=== PATIENT | male | born 1980 ===

== ENCOUNTER 2018-07-04 20:53 | Emergency (ER) | payer SELFPAY ==
[2018-07-04 21:35] VITALS: BP 152/102; PULSE 88; RESP 16; TEMP 99.6; O2SAT 98
--- NOTE | 2018-07-04 22:12 | ED PDOC ---
Upper Extremity Pain/Injury Time Seen by Provider: 07/04/18 21:54 Chief Complaint (Nursing): Finger,Hand,&Wrist Chief Complaint (Provider): Finger,Hand,&Wrist History Per: Patient History/Exam Limitations: no limitations Onset/Duration Of Symptoms: Hrs (x 1) Current Symptoms Are (Timing): Still Present Quality: "Pain" Additional Complaint(s): 37 year old male presents to the Ed with right hand and wrist pain as well as left knee pain, onset about 1 hour ago. 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 He denies head injury, LOC, chest pain, neck pain, abdominal pain and other symptoms. PMD: none provided Past Medical History Reviewed: Historical Data, Nursing Documentation, Vital Signs Vital Signs: Last Vital Signs Temp 99.6 F 07/04/18 21:32 Pulse 88 07/04/18 21:32 Resp 16 07/04/18 21:32 BP 152/102 H 07/04/18 21:32 Pulse Ox 98 07/04/18 21:32 - Medical History PMH: No Chronic Diseases - Surgical History Surgical History: No Surg Hx - Family History Family History: States: Unknown Family Hx - Home Medications Home Medications: Ambulatory Orders Medication Instructions Recorded Ibuprofen [Motrin Tab] 600 mg PO TID #15 tab 07/04/18 - Allergies Allergies/Adverse Reactions: Allergies Allergy/AdvReac Type Severity Reaction Status Date / Time No Known Allergies Allergy Verified 07/04/18 21:31 Review of Systems ROS Statement: Except As Marked, All Systems Reviewed And Found Negative Musculoskeletal: Positive for: Hand Pain (right hand and wrist pain), Other (left knee pain) Physical Exam - Reviewed Nursing Documentation Reviewed: Yes Vital Signs Reviewed: Yes - Physical Exam Appears: Positive for: No Acute Distress Head Exam: Positive for: ATRAUMATIC, NORMAL INSPECTION, NORMOCEPHALIC Skin: Positive for: Normal Color, Warm, Dry Eye Exam: Positive for: EOMI, Normal appearance, PERRL Neck: Positive for: Normal Cardiovascular/Chest: Positive for: Regular Rate, Rhythm Respiratory: Positive for: Normal Breath Sounds Back: Positive for: Normal Inspection Extremity: Positive for: Tenderness (right upper extremity: mild tenderness to dorsal hand and wrist without swelling), Swelling (Left knee: mild tenderness and swelling to anterior left knee with decreased ROM secondary to pain. no distal neurovascular dficit). Negative for: Normal ROM ((+) decreased ROM at left knee secondary to pain) Neurologic/Psych: Positive for: Alert, Oriented. Negative for: Motor/Sensory Deficits - ECG O2 Sat by Pulse Oximetry: 98 (RA) Pulse Ox Interpretation: Normal Medical Decision Making Medical Decision Makin:57 Initial Plan: --Right hand x-ray --Right wrist x-ray --Left knee x-ray --Motrin 600 mg PO Wrist/Hand x-ray: no fx; as read by me Knee x-ray: no fx, no dislocation, ? slightly high riding patella; as read by me Knee immobilized with robert wrap by lila eaton, knee immobilzer applied, crutches given with instruction. repeat bp 155/90. Scribe Attestation: Documented by Claudia Sun, acting as a scribe for Serene Eaton PA-C Provider Scribe Attestation: All medical record entries made by the Scribe were at my direction and personally dictated by me. I have reviewed the chart and agree that the record accurately reflects my personal performance of the history, physical exam, medical decision making, and the department course for this patient. I have also personally directed, reviewed, and agree with the discharge instructions and disposition. Disposition - Clinical Impression Clinical Impression: Knee injury, Wrist injury - Patient ED Disposition Is Patient to be Admitted: No Counseled Patient/Family Regarding: Studies Performed, Diagnosis, Need For Followup, Rx Given - Disposition Referrals: Sharona Cote MD [Staff Provider] - Disposition: Routine/Home Disposition Time: 23:18 Condition: STABLE Prescriptions: Ibuprofen [Motrin Tab] 600 mg PO TID #15 tab Instructions: Internal Derangement of the Knee (DC), Common Wrist Injuries Forms: [employer] (Croatian) Print Language: KAZAKH
--- NOTE | 2018-07-05 12:47 | RAD ---
Date of service: 07/04/2018 PROCEDURE: Left Knee Radiographs. HISTORY: Pain. COMPARISON: None. FINDINGS: BONES: Normal. No fracture. JOINTS: Normal. No osteoarthritis. JOINT EFFUSION: Small suprapatellar joint effusion. OTHER FINDINGS: None. IMPRESSION: Evidence of acute displaced fracture nor dislocation. Small suprapatellar joint effusion..
--- NOTE | 2018-07-05 13:10 | RAD ---
PROCEDURE: Right Hand Radiographs. HISTORY: trauma COMPARISON: None. FINDINGS: BONES: Normal. No fracture. JOINTS: Normal. No osteoarthritic changes. SOFT TISSUES: Normal. OTHER FINDINGS: None. IMPRESSION: Normal right hand radiographs.
--- NOTE | 2018-07-05 13:10 | RAD ---
Date of service: 07/04/2018 PROCEDURE: Right Wrist Radiographs. HISTORY: trauma COMPARISON: None. FINDINGS: BONES: Normal. No fracture. JOINTS: Normal. No dislocation. SOFT TISSUES: Normal. OTHER FINDINGS: None. IMPRESSION: Normal right wrist radiographs.
== END 2018-07-05 00:42 | disposition home or self-care (01) ==
LOC: H.ER 20:53
DX: S89.92XA Unspecified injury of left lower leg, initial encounter (principal); S69.91XA Unspecified injury of right wrist, hand and finger(s), initial encounter; W19.XXXA Unspecified fall, initial encounter; Y92.89 Other specified places as the place of occurrence of the external cause